=== PATIENT | female | born 1975 | race Caucasian/White ===

== ENCOUNTER 2020-09-13 10:19 | Emergency (ER) | payer BC, OTHER ==
[~2020-09-13] VITALS: Ht 160 cm; Wt 74.0 kg
[~2020-09-13 10:19] MED LIST: CETI10CA PO; DGL; LEVO100T PO
[2020-09-13 10:35] VITALS: BP 121/82
--- NOTE | 2020-09-13 11:06 | NUR ---
CONTACT WITH 45 YR OLD FEMALE HERE WITH C/O "SORE THROAT AND LITTLE CONGESTION, FEVERS, WE WERE TAKING CARE OF HER PARENTS WHO CAME DOWN WITH COVID" DR KEY AT BEDSIDE TO [facility] PT
--- NOTE | 2020-09-13 11:48 | NUR ---
NO ACUTE DISTRESS NOTED. NO IV TO DC. REVIEWED DC INSTRUCTIONS WITH PT. UNDERSTANDING VERBALIZED. PT LEFT AMB, GAIT STEADY.
== END 2020-09-13 11:51 | disposition home or self-care (01) ==
LOC: ED 10:57
DX: R05 Cough (principal); J02.9 Acute pharyngitis, unspecified; R50.9 Fever, unspecified
CPT/HCPCS: 99283